=== PATIENT | male | born 2000 | race African-American/Black ===

== ENCOUNTER 2025-05-05 20:28 | Observation (INO) | payer OTHER ==
[~2025-05-05] VITALS: Ht 180.3 cm; Wt 95.7 kg
[2025-05-05 23:40] VITALS: BP 107/52; TEMP 98.5; O2SAT 100
[2025-05-06] VITALS (26 sets, daily range): BP systolic 103–125; BP diastolic 53–73; PULSE 88; TEMP 97.4–98.3; O2SAT 97–100
[2025-05-06 00:43] LABS: PLATELET COUNT, AUTOMATED 260 10^3/uL (150-450)
[2025-05-06 01:09] LABS: ALT/SGPT 22 U/L (7.0-40); AST/SGOT 30 U/L (<34); CALCIUM LEVEL 8.5 MG/DL (8.5-10.1); CARBON DIOXIDE LEVEL 28 MMOL/L (20-31); CHLORIDE LEVEL 105 MMOL/L (98-107); CPK CREATINE PHOSPHOKINASE 602 U/L (46-171); CREATININE FOR GFR 0.99 MG/DL (0.70-1.30); GLOMERULAR FILTRATION RATE > 90.0 (>60); POTASSIUM SERUM 3.7 MMOL/L (3.5-5.1); SODIUM LEVEL 143 MMOL/L (136-145)
[2025-05-06] MEDS ORDERED: HOME MED LIST COMPLETE! XX SCH (01:10)
[2025-05-06] MEDS ORDERED: KEPP1TAB PO (01:10)
[2025-05-06] MEDS ORDERED: ISOVUE-370 76% 100 ML VIAL As Ordered ONE (01:13)
[2025-05-06] MEDS: D5/LACTATED RINGERS 1000 ML IV ONE (01:32)
[2025-05-06 01:37] LABS: AMPHETAMINES LEVEL URINE NEGATIVE (NEGATIVE); BARBITURATES URINE NEGATIVE (NEGATIVE); BENZODIAZEPINES URINE NEGATIVE (NEGATIVE); COCAINE METABOLITE URINE NEGATIVE (NEGATIVE); METHADONE URINE NEGATIVE (NEGATIVE)
[2025-05-06 01:38] LABS: CANNABINOIDS URINE NEGATIVE (NEGATIVE); OPIATES URINE NEGATIVE (NEGATIVE); PHENCYCLIDINE URINE NEGATIVE (NEGATIVE)
[2025-05-06 02:11] LABS: KETONE, URINE AUTO RFX NEGATIVE (NEGATIVE); LEUKOCYTE ESTERASE UR AUTO RFX NEGATIVE (NEGATIVE); MUCUS, URINE RFX SMALL (NEGATIVE); NITRITE, URINE AUTO RFX NEGATIVE (NEGATIVE); RBC, URINE AUTO RFX 29 /HPF (0-3); SQUAM EPITHELIAL CELL UR AURFX 0 /HPF (0-6); WBC, URINE AUTO RFX 0 /HPF (0-3)
[2025-05-06] MEDS: levETIRAcetam INJection 1,000 MG in IV 1 EA IV SCH (06:06)
[2025-05-06] MEDS: ENOXAPARIN 40 MG/0.4 ML SYRINGE (J1650 PER 10MG) SC SCH (10:48)
[2025-05-06 12:23] LABS: C REACTIVE PROTEIN QUANTITATIV 1.4 MG/DL (<1.0)
[2025-05-06] MEDS: ACETAMINOPHEN 325 MG TAB PO PRN (12:26)
[2025-05-06] MEDS: IBUPROFEN 200 MG TAB PO PRN (19:27)
[2025-05-06] MEDS: NS (Normal Saline) 0.9% 1,000 ML IV SCH (22:17)
[2025-05-07] VITALS (12 sets, daily range): BP systolic 110–148; BP diastolic 67–69; TEMP 97.1–98.6; O2SAT 99–100
[2025-05-07 05:45] LABS: BASO # 0.1 10^3/uL (0.0-0.2); BASO % 1.0 % (0.0-1.0); EOS # 0.0 10^3/uL (0.0-0.5); EOS % 0.7 % (0.0-3.0); LYMPH # 1.3 10^3/uL (1.5-5.0); LYMPH % 20.5 % (24.0-44.0); MONO # 0.5 10^3/uL (0.0-0.8); MONO % 8.5 % (2.0-8.0); NEUTROPHILS # 4.2 10^3/uL (1.5-8.5); NEUTROPHILS % 69.0 % (36.0-66.0); PLATELET COUNT, AUTOMATED 252 10^3/uL (150-450)
[2025-05-07] MEDS ORDERED: levETIRAcetam INJection 500 MG in DEXTROSE 5% (D5W) MINI-BAG PLU 100 ML IV SCH (06:00)
[2025-05-07] MEDS ORDERED: levETIRAcetam INJection 1,000 MG in DEXTROSE 5% (D5W) MINI-BAG PLU 100 ML IV SCH (06:00)
[2025-05-07 06:08] LABS: CALCIUM LEVEL 9.0 MG/DL (8.5-10.1); CARBON DIOXIDE LEVEL 27 MMOL/L (20-31); CHLORIDE LEVEL 105 MMOL/L (98-107); CREATININE FOR GFR 0.91 MG/DL (0.70-1.30); GLOMERULAR FILTRATION RATE > 90.0 (>60); POTASSIUM SERUM 3.6 MMOL/L (3.5-5.1); SODIUM LEVEL 142 MMOL/L (136-145)
[2025-05-07] MEDS ORDERED: KEPP10002 PO (11:07)
== END 2025-05-07 13:11 | disposition other institution (70) ==
LOC: M PCU 23:26
PROVIDERS: ADMIT Student in an Organized Health Care Education/Training Program; ATTEND Student in an Organized Health Care Education/Training Program
DX: G40.909 Epilepsy, unspecified, not intractable, without status epilepticus (principal); R41.82 Altered mental status, unspecified; R51.9 Headache, unspecified; R07.89 Other chest pain; Z91.148 Patient's other noncompliance with medication regimen for other reason; R61 Generalized hyperhidrosis; R63.0 Anorexia; R74.8 Abnormal levels of other serum enzymes; D72.829 Elevated white blood cell count, unspecified; Z79.899 Other long term (current) drug therapy
CPT/HCPCS: 36415; 71045; 80048; 80053; 80307; 81001; 82140; 82550; 83880; 84484; 85025; 85027; 85379; 85652; 86140; 93005; 95819; 96365; 96366; 96372; 96376; J1650; J1953